=== PATIENT | male | born 1990 | race African-American/Black ===

== ENCOUNTER 2018-11-08 10:28 | Emergency (ER) | payer SELFPAY ==
--- NOTE | 2018-11-08 12:02 | ED Physician Chart ---
ED Chief Complaint/HPI - Patient Information Chief Complaint:: Hand Contraction History of Present Illness:: pt eloped Allergies:: Allergies Allergy/AdvReac Type Severity Reaction Status Date / Time UNOBTN - Unobtainable Allergy Verified 11/08/18 11:04 ED Septic Shock - . Is Septic Shock (SBP<90, OR Lactate>4 mmol\L) present?: No ED Reassessment (Disposition) - Reassessment Reassessment:: pt improved; pt is asymptomatic upon discharge/elopement Reassessment Condition:: Improved - Diagnosis Diagnosis:: Hand Contraction - Aftercare/Follow up Instructions Aftercare/Follow-Up Instructions:: Counseled pt regarding lab results/diagnosis & need follow up, Refer to Discharge Instructions, Counseled pt & family regarding lab results/diagnosis & need follow up - Patient Disposition Discharge/Transfer:: Elope/AWOL Condition at Disposition:: Stable, Improved (RTER prn if existing s/s reoccur and/or get worse and/or any other new s/s occur; ACIs given for all above Dx; Refer to Hand Surgeon Specialist/Orthopedist/Staff [employer] [email or web address]; F/U with PMD Today or prn; RTER prn if concerned)
== END 2018-11-08 10:35 | disposition left against medical advice (07) ==
LOC: ER 10:28
DX: M24.549 Contracture, unspecified hand (principal); Z53.21 Procedure and treatment not carried out due to patient leaving prior to being seen by health care provider